=== PATIENT | female | born 1960 | race Two or more races ===

== ENCOUNTER 2021-09-28 10:12 | Outpatient (CLI) | payer OTHER | END 2021-09-28 10:15 | disposition home or self-care (01) | LOC: SONOGRAMA 10:12 | PROVIDERS: ATTEND Pathology Anatomic Pathology & Clinical Pathology | DX: E04.1 Nontoxic single thyroid nodule (principal) ==

== ENCOUNTER 2022-03-25 12:07 | Outpatient (CLI) | payer OTHER | END 2022-03-25 12:13 | disposition home or self-care (01) | LOC: SONOGRAMA 12:07 | PROVIDERS: ATTEND Pathology Anatomic Pathology & Clinical Pathology | DX: E04.8 Other specified nontoxic goiter (principal); E04.1 Nontoxic single thyroid nodule; D44.0 Neoplasm of uncertain behavior of thyroid gland ==